=== PATIENT | female | born 1990 | race Two or more races ===

== ENCOUNTER 2016-10-26 17:09 | Emergency (ER) | payer SELFPAY ==
[~2016-10-26] VITALS: Ht 157.5 cm; Wt 67.1 kg
[2016-10-26 18:37] VITALS: BP 107/59
[2016-10-26] MEDS ORDERED: ACETAMINOPHEN/CODEINE#3 (300/30mg) TAB PO ONE (19:00)
== END 2016-10-26 19:44 | disposition home or self-care (01) ==
LOC: ER 17:15
DX: K04.7 Periapical abscess without sinus (principal)